=== PATIENT | female | born 1990 | race Caucasian/White ===

== ENCOUNTER 2016-11-25 09:28 | Outpatient (CLI) | payer SELFPAY ==
[~2016-11-25] VITALS: Ht 175.3 cm; Wt 96.0 kg
[2016-11-25] MEDS ORDERED: PRENTAB9 PO (09:40)
[2016-11-25] MEDS ORDERED: LEVO125T3 PO (09:40)
[2016-11-25] MEDS ORDERED: BUSP10TA PO (09:40)
[2016-11-25 09:43] VITALS: BP 141/80
[2016-11-25 09:48] VITALS: BP 141/80
[2016-11-25 11:02] LABS: MEAN CORPUSCULAR HEMOGLOBIN 31.9 pg (27.0-33.0); MEAN CORPUSCULAR VOLUME 91.1 fl (80.0-96.0); RED CELL DISTRIBUTION WIDTH 13.1 % (11.5-14.5); WHITE BLOOD COUNT 12.8 K/mm3 (4.0-10.0)
[2016-11-25 11:10] LABS: INR 0.9
== END 2016-11-25 12:55 | disposition home or self-care (01) ==
LOC: M LDO 09:28
PROVIDERS: ATTEND Obstetrics & Gynecology
DX: Z04.3 Encounter for examination and observation following other accident (principal); W19.XXXA Unspecified fall, initial encounter; X58.XXXA Exposure to other specified factors, initial encounter; Y92.9 Unspecified place or not applicable; Y93.9 Activity, unspecified; Y99.9 Unspecified external cause status; E03.9 Hypothyroidism, unspecified; Z3A.32 32 weeks gestation of pregnancy

== ENCOUNTER 2017-01-15 00:20 | Inpatient (IN) | payer OTHER ==
[~2017-01-15] VITALS: Ht 175.3 cm; Wt 102.0 kg
[~2017-01-15 00:20] MED LIST: BUSP10TA PO; LEVO125T3 PO; PRENTAB9 PO
[2017-01-15] MEDS ORDERED: LR 1,000 ML IV SCH (00:34)
[2017-01-15 00:36] VITALS: BP 141/86
[2017-01-15] MEDS ORDERED: VANCOMYCIN HCL 1,000 MG, VIAL MATE ADAPTER 1 EACH in D5W 250 ML IV SCH (00:45)
[2017-01-15] MEDS ORDERED: LACTATED RINGER'S 1000 ML IV ONE (00:45)
[2017-01-15 00:59] LABS: MEAN CORPUSCULAR HEMOGLOBIN 32.8 pg (27.0-33.0); MEAN CORPUSCULAR HGB CONC 35.2 g/dl (32.0-36.5); MEAN CORPUSCULAR VOLUME 93.1 fl (80.0-96.0); RED CELL DISTRIBUTION WIDTH 13.1 % (11.5-14.5); WHITE BLOOD COUNT 15.6 K/mm3 (4.0-10.0)
[2017-01-15] MEDS ORDERED: VANCOMYCIN HCL 1,000 MG, VIAL MATE ADAPTER 1 EACH in D5W 250 ML IV ONE (01:00)
[2017-01-15] MEDS ORDERED: OXYTOCIN INJ 10 UNITS/ML VIAL (J2590) As Ordered ONE (01:12)
[2017-01-15] MEDS ORDERED: OXYTOCIN 30 UNITS IN 0.9% NaCl 500ML IV BAG (J2590) As Ordered ONE (01:12)
[2017-01-15] MEDS ORDERED: OXYTOCIN DRIP 30 UNITS in APPROPRIATE DILUENT 1 EA IV SCH (01:33)
[2017-01-15 01:34] LABS: CORD GAS ABE A -3.9; CORD GAS ABE V -0.2; CORD GAS HCO3 A 22.7 MEQ/L; CORD GAS HCO3 V 20.6 MEQ/L; CORD GAS O2 SAT A 35.4 %; CORD GAS O2 SAT V 79.7 %; CORD GAS PCO2 A 46.6 mmHg; CORD GAS PCO2 V 25.5 mmHg; CORD GAS PH A 7.305 UNITS; CORD GAS PH V 7.526 UNITS; CORD GAS PO2 A 19.9 mmHg; CORD GAS PO2 V 32.4 mmHg; CORD GAS SBC A 19.6 MEQ/L; CORD GAS SBC V 23.9 MEQ/L; CORD GAS TCO2 A 24.1 MEQ/L; CORD GAS TCO2 V 21.4 MEQ/L
[2017-01-15 01:39] VITALS: BP 133/69
[2017-01-15] MEDS ORDERED: MEASLES,MUMPS,RUBELLA VACCINE INJ (MMR-II) (90707) SC SCH (01:45)
[2017-01-15] MEDS ORDERED: METHYLERGONOVINE MALEATE 0.2 MG TAB PO PRN (01:45)
[2017-01-15] MEDS ORDERED: ACETAMINOPHEN 500 MG TAB PO PRN (01:45)
[2017-01-15] MEDS ORDERED: RHOGAM 300 MCG (1500 IU) INJ (J2790) IM SCH (01:45)
[2017-01-15] MEDS ORDERED: OXYTOCIN INJ 10 UNITS/ML VIAL (J2590) IV ONE (01:45)
[2017-01-15] MEDS ORDERED: ANUSOL HC CREAM 30GM TOP PRN (01:45)
[2017-01-15] MEDS ORDERED: DIBUCAINE 1% OINTMENT 30GM TOP PRN (01:45)
[2017-01-15] MEDS ORDERED: DOCUSATE SODIUM 100 MG CAP PO PRN (01:45)
[2017-01-15] MEDS ORDERED: IBUPROFEN 800 MG TAB PO PRN (01:45)
[2017-01-15] MEDS ORDERED: MOM 30ML SUSPENSION UDC PO PRN (01:45)
[2017-01-15 01:49] VITALS: BP 131/68
[2017-01-15 02:54] VITALS: BP 138/68
[2017-01-15 07:00] VITALS: BP 119/64
[2017-01-15] MEDS: LEVOTHYROXINE 0.125 MG TAB (125 MCG) PO SCH (07:25)
[2017-01-15] MEDS: PRENATAL VITAMIN TAB PO SCH (09:05)
--- NOTE | 2017-01-15 15:15 | HPE ---
DATE OF ADMISSION: 01/15/2017 A 26-year-old 2, para 1, last menstrual period (LMP) of 04/15/2016, estimated date of confinement (EDC) 01/20/2017 at 39 weeks of gestation with active labor. Risk factors are that she is on herpes simplex virus (HSV) prophylaxis. She is hypothyroid, on Synthroid 0.125 mcg. 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 PAST HISTORY: August 2011, spontaneous vaginal delivery of a female, 7 pounds 14 ounces. Labs show A positive, HIV negative, hepatitis negative, RPR negative, rubella immune, Varicella immune. Pap normal. Urine was positive for Enterococcus (E) coli. Gonorrhea and chlamydia are negative. One-hour glucose 75. GBS positive, and [place] testing was negative. Presently, she is in distressed situation. Symphysis fundus height is 40, vertex, occiput anterior (OA), 100% effaced, 6 cm, -2 station, membranes intact. Urine is 1015, pH 7, negative, negative, negative. Blood pressure 141/96, respirations 18, temperature 99, and 122. Our plan of management is to hydrate the patient, antibiotic prophylaxis. She has a significant PENICILLIN allergy, and the GBS is sensitive to vancomycin. We anticipate vaginal delivery.
--- NOTE | 2017-01-15 15:19 | DN ---
DATE: 01/15/2017 This lady came in in active labor, rapidly got fully dilated with bulging membranes. Had a spontaneous rupture of membranes. Getting her first dose of vancomycin, because she is group B streptococcus (GBS) positive. Delivered a live- male infant, 7 pounds 13 ounces, 3544 grams, scores of 9 and 9 at one and five minutes, respectively. Placenta delivered spontaneously thereafter. Three-vessel cord. Membranes and tissues intact. Examination of the urethral area, the lateral muller, the anterior and posterior muller, and the sphincter were all intact. The patient baby tolerated procedure well.
[2017-01-15 18:00] VITALS: BP 122/66
[2017-01-16] MEDS: LEVOTHYROXINE 0.125 MG TAB (125 MCG) PO SCH (06:02)
[2017-01-16 06:30] VITALS: BP 138/73
[2017-01-16 07:02] LABS: MEAN CORPUSCULAR HEMOGLOBIN 31.8 pg (27.0-33.0); MEAN CORPUSCULAR HGB CONC 33.7 g/dl (32.0-36.5); MEAN CORPUSCULAR VOLUME 94.5 fl (80.0-96.0); RED CELL DISTRIBUTION WIDTH 13.3 % (11.5-14.5); WHITE BLOOD COUNT 15.9 K/mm3 (4.0-10.0)
[2017-01-16] MEDS: PRENATAL VITAMIN TAB PO SCH (09:30)
--- NOTE | 2017-01-16 11:17 | IPNPDOC ---
Text Note Date of Service The patient was seen on 01/16/17. NOTE Marissa is a 26yo [id number] doing well on PPD 1 s/p uncomplicated . She is without issue. Lochia normal, spontaneously voiding and ambulating without difficulty. Tolerating regular diet. Denies f/c/n/v/SOB/CP/MATIAS /abdominal pain. Vitals wnl, afebrile Exam: General: WDWN, NAD, resting comfortably Cardiac: S1S2 present, no murmur Lungs: CTAB without wheeze/crackles Abdomen: soft, NTTP, fundus firm u-2cm Extremities: no tenderness of calves bilaterally Assessment: Marissa is a 26yo [id number] doing well on PPD 1 s/p uncomplicated . Vitals wnl, benign exam. No e/o infection, hemodynamically stable. has not yet urinated, so not yet ready for discharge. Plan: -routine post- care -tylenol/motrin prn pain -encourage and ambulation -undecided for contraception -will have 6wk PP follow-up visit -Likely discharge tomorrow Dr. Janie Sidhu MD [place] ESTEBAN VS,Shanti, I+O VSShanti I+O Laboratory Tests 01/16/17 06:30 Red Blood Count 4.07, Mean Corpuscular Volume 94.5, Mean Corpuscular Hemoglobin 31.8, Mean Corpuscular Hemoglobin Concent 33.7, Red Cell Distribution Width 13.3 Vital Signs Date Time Temp Pulse Resp B/P (MAP) Pulse Ox O2 Delivery O2 Flow Rate FiO2 01/16/17 06:30 98.7 80 18 138/73 (94) JANIE SIDHU MD Jan 16, 2017 11:17
[2017-01-16 18:00] VITALS: BP 129/69
[2017-01-17 05:37] VITALS: BP 123/73
[2017-01-17] MEDS: LEVOTHYROXINE 0.125 MG TAB (125 MCG) PO SCH (06:17)
[2017-01-17] MEDS: PRENATAL VITAMIN TAB PO SCH (07:45)
--- NOTE | 2017-01-17 08:37 | DS.PDOC ---
Discharge Summary General Date of Admission Jan 15, 2017 at 00:34 Date of Discharge [id number] Discharge Summary PROCEDURES PERFORMED DURING STAY: spontaneous vaginal delivery ADMITTING DIAGNOSES: Labor DISCHARGE DIAGNOSES: 1. Healthy male infant HOSPITAL COURSE: Admitted in active labor. Underwent an uncomplicated delivery. See delivery note. DISCHARGE MEDICATIONS: Motrin, Dibucaine, Colace, Tylenol, Lanolin, Nor QD for control Physical exam: see note from this morning LABORATORY DATA: Please see below. ACTIVITY: as tolerated. Nothing in vagina for 6 weeks. No bathing for 2 weeks , shower only. DIET: regular DISPOSITION:stable TIME SPENT ON DISCHARGE: Greater than 15 minutes. Sessions Vital Signs/I&Os Vital Signs Date Time Temp Pulse Resp B/P (MAP) Pulse Ox O2 Delivery O2 Flow Rate FiO2 01/17/17 05:37 98.2 73 16 123/73 (90) Discharge Medications Scheduled Levothyroxine Sodium (Synthroid) 125 Mcg Tab, 125 MCG PO DAILY, (Reported) Multivitamins/ ( 27-0.8 mg) 1 Tab Tab, 1 TAB PO DAILY, (Reported ) Allergies Coded Allergies: Penicillins (Verified Allergy, Unknown, RASH, 11/25/16) SESSIONSEKTA MD January 17, 2017 08:37
--- NOTE | 2017-01-17 08:37 | IPNPDOC ---
Text Note Date of Service The patient was seen on 01/17/17. NOTE PPD2 prog note States feeling well, no complaints. No heavy VB. Pain controlled. Voiding, ambulatory. Bonding well and brst feeding. VSSAF CTAB RRR Ut at U-2, firm Ext no CCE a/p: Doing well, d/c home Sessions VS,Shanti, I+O VS, Shanti, I+O Vital Signs Date Time Temp Pulse Resp B/P (MAP) Pulse Ox O2 Delivery O2 Flow Rate FiO2 01/17/17 05:37 98.2 73 16 123/73 (90) SESSIONS,EKTA Pollard MD January 17, 2017 08:37
[2017-01-17] MEDS ORDERED: DIBU1OIN TOP (08:56)
[2017-01-17] MEDS ORDERED: ACET50TA PO (08:56)
[2017-01-17] MEDS ORDERED: IBUP-1114 PO (08:56)
[2017-01-17] MEDS ORDERED: COLA100C3 PO (08:56)
== END 2017-01-17 10:08 | disposition home or self-care (01) | DRG 774 ==
LOC: M LDO 00:20 → M LDI 00:34 → M OBS 02:44
PROVIDERS: ADMIT Obstetrics & Gynecology; ATTEND Obstetrics & Gynecology
PROC: 10E0XZZ Delivery of Products of Conception, External Approach (ICD-10-PCS; principal; 2017-01-15)
DX: O99.284 Endocrine, nutritional and metabolic diseases complicating childbirth (principal); O98.52 Other viral diseases complicating childbirth; E03.9 Hypothyroidism, unspecified; O99.824 Streptococcus B carrier state complicating childbirth; B00.9 Herpesviral infection, unspecified; Z3A.39 39 weeks gestation of pregnancy; Z37.0 Single live birth; Z88.0 Allergy status to penicillin

== ENCOUNTER → 2017-06-30 | Outpatient (REF) | payer OTHER ==
[~2017-06-30] MED LIST changes: +ACET50TA PO; +COLA100C5 PO; +DIBU1OIN TOP; +IBUP-1114 PO; -LEVO125T3 PO; +LEVO125T4 PO
[2017-06-30 13:43] LABS: BASO % 0.3 % (0.0-1.0); EOS % 0.2 % (0.0-3.0); IMMATURE GRANULOCYTE % 0.2 % (0-0); LYMPH # 2.5 10^3/uL (1.5-6.5); LYMPH % 26.5 % (24.0-44.0); MEAN CORPUSCULAR HEMOGLOBIN 30.8 pg (27.0-33.0); MEAN CORPUSCULAR HGB CONC 34.2 g/dl (32.0-36.5); MEAN CORPUSCULAR VOLUME 90.2 fl (80.0-96.0); MONO # 0.5 10^3/uL (0.0-0.8); MONO % 4.8 % (0.0-5.0); NEUTROPHILS # 6.4 10^3/uL (1.8-7.7); PLATELET COUNT, AUTOMATED 212 10^3/uL (150-450); RED CELL DISTRIBUTION WIDTH 12.9 % (11.5-14.5); WHITE BLOOD COUNT 9.4 10^3/uL (4.0-10.0)
[2017-06-30 14:25] LABS: FOLATE 21.4 NG/ML (>5.4); VITAMIN B12 LEVEL 1017 PG/ML (247-911)
[2017-06-30 14:49] LABS: ERYTHROCYTE SEDIMENTATION RATE 3 mm/hr (0-20)
[2017-06-30 22:40] LABS: ALBUMIN 4.4 GM/DL (3.2-5.2); ALBUMIN/GLOBULIN RATIO 1.47 (1.00-1.93); ALKALINE PHOSPHATASE 46 U/L (45-117); ALT/SGPT 34 U/L (12-78); ANION GAP 8 MEQ/L (8-16); AST/SGOT 22 U/L (15-37); BILIRUBIN,TOTAL 0.5 MG/DL (0.2-1.0); BLOOD UREA NITROGEN 12 MG/DL (7-18); CARBON DIOXIDE LEVEL 24 MEQ/L (21-32); CHLORIDE LEVEL 108 MEQ/L (98-107); GLOMERULAR FILTRATION RATE > 60.0 (>60); GLUCOSE, FASTING 82 MG/DL (70-105); SODIUM LEVEL 140 MEQ/L (136-145); TOTAL PROTEIN 7.4 GM/DL (6.4-8.2)
[2017-07-01 13:59] LABS: ALBUMIN % 63.5 % (55.8-66.1); GAMMA GLOBULIN % 15.3 % (11.1-18.8)
[2017-07-05 00:11] LABS: SJOGREN'S ANTI SS-A <0.2 AI (0.0-0.9); SJOGREN'S ANTI SS-B 0.2 AI (0.0-0.9); VITAMIN E LEVEL 10.4 mg/L (5.3-16.8)
== END ==
LOC: M LABNEURO 10:41
PROVIDERS: ATTEND Psychiatry & Neurology Neurology
DX: G62.9 Polyneuropathy, unspecified (principal)